=== PATIENT | male | born 1980 | race Caucasian/White ===

== ENCOUNTER 2022-03-02 08:10 | Outpatient (REF) | payer OTHER, SELFPAY ==
--- NOTE | ~2022-03-02 | MR_ITS ---
EXAMINATION: MRI BRAIN WITHOUT AND WITH CONTRAST MR ANGIOGRAM NECK WITHOUT AND WITH CONTRAST MR ANGIOGRAM HEAD WITHOUT AND WITH CONTRAST CLINICAL INFORMATION: Diplopia. Double vision. Transient ischemic attack. COMPARISON: No relevant prior imaging. TECHNIQUE: Multiplanar MR imaging of the brain was performed without and with contrast. An MR angiogram of the head and neck was also performed without and with contrast. MIP reconstructions were generated in multiple orientations at the acquisition workstation. Multiple three-dimensional surface rendered images and maximum intensity projection images were generated on a dedicated 3-D lab workstation. Arterial stenoses are measured in accordance with NASCET criteria or similar method if applicable. FINDINGS: Brain: Postcontrast images reveal no abnormal intracranial mass or enhancement. There is no intracranial mass effect or midline shift. No abnormal extra-axial collection. Lateral and third ventricles are normal. No hydrocephalus. Midline structures including the cervicomedullary junction are normal. No acute bone marrow signal changes. There is no acute territorial infarct. No pathological magnetic susceptibility artifact. Intracranial vascular flow voids are maintained. There is no mastoid or middle ear effusion. No active paranasal sinus disease. Globes and orbits are symmetric. MR angiogram neck: The aortic arch apex is normal. Origins of the major aortic branches are widely patent. Common carotid arteries and carotid bifurcations are normal. No stenosis of the extracranial internal carotid arteries. The cervical segments of the vertebral arteries are patent and demonstrate normal antegrade flow. MR angiogram head: Intracranial internal carotid arteries are normal. The intradural vertebral artery segments and basilar artery are normal. Visualized portions of the anterior, middle, and posterior cerebral artery complexes are normal. No intracranial arterial vessel occlusion. No evidence of aneurysm or high flow vascular lesion. MR/MR head/brain wo/w con IMPRESSION: Normal brain MRI. Normal MR angiogram of the head and neck.
== END 2022-03-02 08:11 | disposition home or self-care (01) ==
LOC: HO.MRI 08:10
PROVIDERS: PCP Registered Nurse; Visit Provider Internal Medicine
DX: H53.2 Diplopia (principal); G45.9 Transient cerebral ischemic attack, unspecified
CPT/HCPCS: 70544; 70549; 70553; A9585

== ENCOUNTER 2022-03-18 13:45 | Outpatient (REF) | payer OTHER, SELFPAY ==
--- NOTE | ~2022-03-18 | XR_ITS ---
EXAMINATION: XR LUMBOSACRAL SPINE CLINICAL INFORMATION: Reason for Exam lumbar spine COMPARISON: None TECHNIQUE: Three views of the lumbosacral spine. FINDINGS: The 12th ribs are likely hypoplastic with 5 nonrib-bearing lumbar vertebrae. There is normal bony mineralization. Borderline loss of height superior plate of T12 and L1 are suggested on the lateral view. No fracture line or angulation anterior vertebral margins. There is no destructive process or paraspinal soft tissue swelling. There are degenerative disc changes L1-L2 and L3-L4 with mild disc narrowing and vertebral spurring. There is borderline spondylolisthesis at L3-L4. The SI joints and visualized sacrum are unremarkable. XR/XR lumbar spine 2-3V IMPRESSION: 1. Degenerative disc changes L1-L2 and L3-L4. 2. Borderline spondylolisthesis L3-L4. 3. Borderline loss of height superior plate T12 and L1.
== END 2022-03-18 13:46 | disposition home or self-care (01) ==
LOC: HO.XRAY 13:45
PROVIDERS: PCP Registered Nurse; Visit Provider Registered Nurse
DX: M54.50 Low back pain, unspecified (principal)
CPT/HCPCS: 72100